=== PATIENT | male | born 1985 | race Caucasian/White ===

== ENCOUNTER 2021-07-21 01:26 | Emergency (ER) | payer BC, SELFPAY ==
[2021-07-21 01:30] VITALS: BP 151/105; PULSE 101; RESP 16; TEMP 36.6; O2SAT 98; BMI 34.8
--- NOTE | 2021-07-21 01:40 | EDS_ITS ---
HPI History of Present Illness Chief Complaint: General Illness Informant: patient and spouse/S.O. Narrative Narrative: Patient presents with nausea vomiting and diarrhea that started about 24 hours ago. Evidently 3 people on his shift at work are ill with something similar. 8 people on another shifter ill. This patient has had his COVID vaccines but not yet booster. He also had COVID last year with almost no symptoms. He has minimal sore throat but no cough or myalgias or fevers. No travel. No abnormal foods. No recent antibiotics. Patient has had a total of 2-3 episodes of vomiting in the last 24 hours. He has had about 3 soft but not watery bowel movements. No blood has been seen in any of this. No abdominal pain. No fevers. No history of abdominal surgeries. No change in medicines for his bipolar. [facility] Medical History Anxiety Bipolar disorder Depression Home Medications lamotrigine [Lamictal] mg PO 07/21/21 [History Last Taken Unknown] ondansetron 4 mg PO Q8H PRN #10 tab 07/21/21 [Rx Last Taken Unknown] Allergy/AdvReac Type Severity Reaction Status Date / Time Bifidobacterium infantis Allergy Rash Verified 07/21/21 01:28 [From Align] Surgical History no surgical history Social History Smoking Status: Current every day smoker tobacco type: e-cigarettes ROS ROS ED Constitutional Constitutional ED: Denies chills, fever(s) or subjective Eyes Eyes: Denies blurry vision ENT ENT ED: Reports sore throat; Denies rhinorrhea Cardiovascular Cardiovascular: Denies chest pain Respiratory/Chest Respiratory/Chest: Denies cough, dyspnea, dyspnea on exertion or sputum Gastrointestinal Gastrointestinal: Reports diarrhea, nausea and vomiting; Denies abdominal pain, constipation or melena Genitourinary Genitourinary ED: Denies dysuria or hematuria Musculoskeletal Musculoskeletal: Denies myalgias Integumentary Denies rash Neurologic Neurologic: Denies headache(s) Psychiatric Psychiatric: Reports anxiety and depression Endocrine Endocrinology: Denies polydipsia or polyuria Allergic/Immunologic Allergic/Immunologic ED: Denies mouth swelling or urticaria EXAM Physical Exam Const Vital Signs: 07/21/21 01:30 07/21/21 01:33 Temperature 97.9 F Temperature Source Temporal Pulse Rate 101 H Respiratory Rate 16 Respiratory Effort Normal Blood Pressure 151/105 H Blood Pressure Mean 120 Pulse Ox 98 Oxygen Delivery Method Room Air Positive well nourished and well developed Constitutional Narrative: Patient is lying in bed. He looks comfortable and nontoxic. General Appearance ED: well developed and NAD; Negative for cyanotic or diaphoretic HEENT Reports moist mucous membranes Eyes General Eye ED: Negative for pale conjunctiva or scleral icterus Neck no JVD Resp normal respiratory effort and clear to auscultation bilaterally Auscultation: Negative for rales, rhonchi or wheezes Cardio regular rate and regular rhythm GI normal to inspection, nondistended, normoactive bowel sounds, non-tender, non- distended and no masses Palpation: soft; Negative for tender or guarding Back/Spine no CVA tenderness Extremity normal to inspection Neuro Sensorium / Orientation: alert; Negative for lethargic or stuporous Psych mental status grossly normal Skin no rashes or lesions noted MDM MDM MDM Narrative Medical decision making narrative: Patient's COVID test is positive. His nausea is better. He is not having dyspnea or cough. He does have a slight sore throat. This patient has been vaccinated with 2 vaccines. He was due for his booster in the next 1 to 2 months. He has actually had COVID 2 other times before also. He has done well each time. Plan will be to get him home. He should notify work and any close contacts of the illness. We discussed reasons to return. Lab Data Attestation: I reviewed the patient's lab results. Discharge Plan Triage Chief Complaint: General Illness ED Provider: Inocente Dunne Dx/Rx/DC Orders Clinical Impression: COVID-19, Nausea vomiting and diarrhea Instructions: Coronavirus Disease 2019 (COVID-19): Caring for Yourself or Others Prescriptions: New ondansetron 4 mg tablet,disintegrating 4 mg PO Q8H PRN (Reason: nausea and vomiting) Qty: 10 RF: 0 No Action lamotrigine [Lamictal] 150 mg Tablet PO RF: 0 Stand Alone Forms: ED Work / School Excuse Primary Care Provider: Care Physician,No Primary Referrals: Marychuy Palacios MD [STAFF PHYSICIAN] - 10-14 Days if not better Care Physician,No Primary [Primary Care Provider] - Disposition Disposition: Home, Self Care
[2021-07-21] MEDS: Ondansetron ODT 4 MG Tablet PO (01:43)
== END 2021-07-21 02:36 | disposition home or self-care (01) ==
PROVIDERS: Emergency Provider Emergency Medicine; Visit Provider Emergency Medicine
DX: U07.1 COVID-19 (principal); F31.9 Bipolar disorder, unspecified; F17.290 Nicotine dependence, other tobacco product, uncomplicated; F41.9 Anxiety disorder, unspecified; Z79.899 Other long term (current) drug therapy
CPT/HCPCS: 87426; 99283

== ENCOUNTER 2021-09-25 08:01 | Emergency (ER) | payer BC, SELFPAY ==
[2021-09-25 08:04] VITALS: BP 169/112; PULSE 84; RESP 17; TEMP 36.3; O2SAT 100; BMI 34.3
--- NOTE | 2021-09-25 08:20 | EDS_ITS ---
HPI HPI - GI History of Present Illness Chief Complaint: Abd Pain Narrative Narrative: 36-year-old male presenting with right flank pain. He states its been present for 5 days. He describes it as coming out of nowhere and sharp in nature. It does not radiate. He does not have associated diaphoresis or nausea with it. He states that when he bears down to have a bowel movement or when he coughs it hurts worse. He denies any trauma. He denies constipation or diarrhea. He states that the pain does not change with his diet. No history of kidney stones. No urinary complaints. He is not having chest pain or shortness of breath. [facility] Medical History Anxiety Bipolar disorder Depression Home Medications lamotrigine [Lamictal] 150 mg PO DAILY 07/21/21 [History Last Taken Unknown] naproxen [Naprosyn] 500 mg PO BID PRN #20 tab 09/25/21 [Rx Last Taken Unknown] ondansetron 4 mg PO Q8H PRN #14 tab 09/25/21 [Rx Last Taken Unknown] Allergy/AdvReac Type Severity Reaction Status Date / Time Bifidobacterium infantis Allergy Rash Verified 09/25/21 08:03 [From Align] Social History Smoking Status: Current every day smoker tobacco type: e-cigarettes ROS ROS ED Constitutional Constitutional ED: Denies chills, fever(s) or sweats ENT ENT ED: Denies rhinorrhea or sore throat Cardiovascular Cardiovascular: Denies chest pain or palpitations Respiratory/Chest Respiratory/Chest: Denies cough, dyspnea or dyspnea on exertion Gastrointestinal Gastrointestinal: Reports abdominal pain; Denies diarrhea, nausea or vomiting Genitourinary Genitourinary ED: Denies dysuria or hematuria Musculoskeletal Musculoskeletal: Reports back pain Integumentary Denies Abrasions or rash Neurologic Neurologic: Denies headache(s) or paresthesias Psychiatric Psychiatric: Denies anxiety or depression EXAM Physical Exam Const Vital Signs: 09/25/21 08:04 Temperature 97.3 F L Temperature Source Temporal Pulse Rate 84 Respiratory Rate 17 Blood Pressure 169/112 H Blood Pressure Mean 131 Pulse Ox 100 Oxygen Delivery Method Room Air Positive well nourished General Appearance ED: NAD; Negative for pallor HEENT Reports moist mucous membranes normocephalic and atraumatic Eyes PERRL and EOMs intact bilaterally General Eye ED: Negative for pale conjunctiva or scleral icterus Resp normal respiratory effort and clear to auscultation bilaterally Cardio regular rate and regular rhythm GI non-distended GI Narrative: Negative Stephen sign. Palpation: soft and tender RUQ Back/Spine General Back: CVA tenderness right Neuro CN's II-XII intact bilaterally and moves all extremities Sensorium / Orientation: alert, oriented to person, oriented to place and oriented to time Psych mental status grossly normal Skin General Skin Exam: Negative for jaundice or pallor Rashes: no rashes MDM MDM MDM Narrative Medical decision making narrative: Patient's pain treated with Toradol. He was given a liter of IV fluids as well. CBC and CMP are unremarkable. Urinalysis negative for infection or occult blood. Patient still continued to have pain so I obtained a CT of the abdomen pelvis with IV contrast which shows some very mild hydronephrosis and hydroureter on the right side. Suspected that he passed a kidney stone. It also shows mesenteric adenitis. Patient was counseled on findings and will be discharged home with Bijan and Crystal. He was given follow-up with Dr. Calderon. Patient stable for discharge at this time. Impression: 1. Mesenteric adenitis 2. Right hydronephrosis with hydroureter Lab Data Attestation: I reviewed the patient's lab results. Labs: Laboratory Results - last 24 hr 09/25/21 09/25/21 09/25/21 08:25 08:25 09:15 WBC 7.8 RBC 4.89 Hgb 15.2 Hct 43.9 MCV 89.8 MCH 31.1 MCHC 34.6 RDW Std Deviation 39.8 RDW Coeff of Chantelle 12.1 Plt Count 244 MPV 10.7 Immature Gran % (Auto) 0.100 Neut % (Auto) 65.1 Lymph % (Auto) 23.7 [place] % (Auto) 8.8 Eos % (Auto) 1.7 Baso % (Auto) 0.6 Absolute Neuts (auto) 5.1 Absolute Lymphs (auto) 1.85 Nucleated RBC % 0 Sodium 138 Potassium 3.7 Chloride 107 Carbon Dioxide 25.0 Anion Gap 6 BUN 15 Creatinine 1.06 Estim Creat Clear Calc 104.58 Est GFR (MDRD) Af Amer 103 Est GFR (MDRD) Non-Af 85 BUN/Creatinine Ratio 14.2 Glucose 89 Calcium 8.4 L Total Bilirubin 0.40 AST 18 ALT 39 Alkaline Phosphatase 75 Total Protein 7.6 Albumin 4.2 Globulin 3.4 Albumin/Globulin Ratio 1.2 Urine Color Yellow Urine Clarity Clear Urine pH 7.0 Ur Specific [place] 1.015 Urine Protein Negative Urine Glucose (UA) Normal Urine Ketones Negative Urine Occult Blood Negative Urine Nitrite Negative Urine Bilirubin Negative Urine Urobilinogen Normal Ur Leukocyte Esterase 25 H Urine RBC 0 SEEN Urine WBC 0-5 SEEN Ur Squamous Epith Cells 0-5 SEEN Urine Bacteria 0 SEEN Urine Mucus 0 SEEN Radiography Diagnostic Testing: Clinical Impression(s) from Imaging Studies Abdomen/Pelvis CT 09/25/21 09:33 IMPRESSION: Mild degree of right hydronephrosis and right hydroureter down to the right ureterovesical junction. A recently passed calculus should BE ruled out. Mild degree of diffuse bilateral wall thickening. Findings suggestive of mesenteric adenitis. Electronically Signed: Sameer Lloyd MD at 10:34 EDT , Discharge Plan Triage Chief Complaint: Abd Pain ED Provider: Mihir Mcgrath Dx/Rx/DC Orders Instructions: Understanding Hydronephrosis, ED Kidney Stone, Passed, ED Adenitis, Mesenteric Prescriptions: New naproxen [Naprosyn] 500 mg tablet 500 mg PO BID PRN (Reason: pain) Qty: 20 RF: 0 ondansetron 4 mg tablet,disintegrating 4 mg PO Q8H PRN (Reason: nausea and vomiting) Qty: 14 RF: 0 No Action lamotrigine [Lamictal] 150 mg Tablet 150 mg PO DAILY RF: 0 Referrals: [facility] [Other] Javed Calderon MD [STAFF PHYSICIAN] - As Needed Disposition Disposition: Home, Self Care
[2021-09-25] MEDS: 0.9% Normal Saline 1,000 ML 1000 ML IV (08:32)
[2021-09-25] MEDS: Ketorolac 15 MG/ML Vial IV (08:33)
[2021-09-25 08:38] LABS: Absolute Lymphocyte Count 1.85 X10^3/uL (0.83-4.51); Absolute Neutrophil Count 5.1 X10^3/uL (2.0-7.7); Basophil# 0.05 X10^3/uL; Basophil% 0.6 % (0-1); Eosinophil# 0.13 X10^3/uL; Eosinophils% 1.7 % (0-5); Hematocrit 43.9 % (40-54); Hemoglobin 15.2 g/dL (13.0-16.5); Lymphocyte # 1.85 X10^3/ul (0.83-4.51); Lymphocyte % 23.7 % (19-41); Mean Corp Hgb Conc 34.6 g/dL (32-36); Mean Corpuscular Hgb 31.1 pg (27.0-32.0); Mean Corpuscular Volume 89.8 fL (80-94); Mean Platelet Vol. 10.7 fl (6.2-12.0); Monocyte# 0.69 X10^3/uL; Monocyte% 8.8 % (0-10); NRBC Flagged by Analyzer 0 % (0-5); Neutrophil # 5.07 X10^3/uL (2.7-7.7); Neutrophil % 65.1 % (47-70); Platelet Count 244 K/mm3 (150-450); RBC Distribution Width CV 12.1 % (11.6-14.6); RBC Distribution Width SD 39.8 fl (35.1-43.9); Red Blood Count 4.89 M/mm3 (4.6-6.2); White Blood Count 7.8 K/mm3 (4.4-11.0)
[2021-09-25 08:55] LABS: ALB/GLOB Ratio 1.2 RATIO (0.9-2.4); AST(SGOT) 18 U/L (15-37); Alanine Aminotransfer ALT/SGPT 39 U/L (16-61); Albumin, Serum 4.2 g/dL (3.2-5.0); Alkaline Phosphatase 75 U/L (45-117); Anion Gap 6 (5-15); BUN 15 mg/dL (7-18); BUN/Creat Ratio 14.2 RATIO (10-20); Calcium,Total 8.4 mg/dL (8.5-10.1); Chloride 107 mmol/L (98-107); Creatinine, Serum 1.06 mg/dL (0.70-1.30); EST Glomerular Filtration Rate 85 mL/min (>60); Est Glom Filt Rate - Afr Amer 103 mL/min (>60); Estimated Creatinine Clearance 104.58 ml/min; Globulin 3.4 g/dL (2.2-4.2); Glucose 89 mg/dL (74-106); Potassium 3.7 mmol/L (3.5-5.1); Protein, Total 7.6 g/dL (6.4-8.2); Sodium Level 138 mmol/L (136-145)
[2021-09-25 09:30] LABS: Bacteria 0 SEEN /hpf (None Seen); Color, Urine Yellow (Yellow); Glucose, Dipstick Normal (Normal); Ketone-Dipstick Negative (Negative); Leukocyte Esterase-Dipstick 25 /ul (Negative); Mucous, Urine 0 SEEN /hpf (<or=2+); Nitrite-Dipstick Negative (Negative); Occult Blood-Urine Negative /ul (Negative); Protein-Dipstick Negative (Negative); Red Blood Cells-Urine 0 SEEN /hpf (0-5); Specific Gravity, Urine 1.015 (1.002-1.030); Urine Bilirubin Dipstick Negative (Negative); Urine Clarity Clear (Clear); Urine Urobilinogen Normal (Normal)
--- NOTE | 2021-09-25 09:33 | CT_ITS ---
STUDY: CT ABDOMEN AND PELVIS WITH CONTRAST REASON FOR EXAM: Male, 36 years old. 5 day history of right-sided abdominal pain. RADIATION DOSAGE (If Supplied By Facility): CTDIvol = ( 16.79 ) mGy, DLP = ( 1347.44 ) mGycm TECHNIQUE: Transaxial images were obtained from the dome of the diaphragm to the symphysis pubis without oral contrast. IV 100mL [id number]-[id number] was administered. Sagittal and coronal images were reconstructed. Individualized dose optimization techniques were used for this CT. COMPARISON: None. FINDINGS: The visualized lung bases are unremarkable. The visualized portions of the heart are within normal limits. There is decreased attenuation of the liver consistent with steatosis. Normal gallbladder and extrahepatic biliary system. Normal spleen. Normal pancreas. Normal bilateral adrenal glands. Mild degree of right hydronephrosis. Mildly dilated right ureter down to the ureterovesical junction. Findings are suggestive of a recently passed right ureteral calculus. Normal left kidney. There is a small hiatal hernia. Normal small intestine. Normal colon. The appendix is visualized and appears normal. Small lymph nodes are seen within the mesentery in the right lower quadrant suggestive of mesenteric adenitis. Normal abdominal aorta. Normal inferior vena cava. Normal retroperitoneum. Mild degree of bladder wall thickening. Focal prostatic calcification. Normal abdominal wall. Normal osseous structures. CT/Abdomen/Pelvis W IV Cont ONLY IMPRESSION: Mild degree of right hydronephrosis and right hydroureter down to the right ureterovesical junction. A recently passed calculus should BE ruled out. Mild degree of diffuse bilateral wall thickening. Findings suggestive of mesenteric adenitis. Electronically Signed: Sameer Lloyd MD at 10:34 EDT ,
[2021-09-25 09:41] LABS: Squamous Epithelial Cells - UA 0-5 SEEN /hpf (0-5)
[2021-09-25 09:42] LABS: White Blood Cells 0-5 SEEN /hpf (0-5)
[2021-09-25 11:36] VITALS: BP 162/92; PULSE 81; RESP 18; O2SAT 98
== END 2021-09-25 11:36 | disposition home or self-care (01) ==
PROVIDERS: Emergency Provider Student in an Organized Health Care Education/Training Program; Visit Provider Student in an Organized Health Care Education/Training Program
DX: I88.0 Nonspecific mesenteric lymphadenitis (principal); N13.30 Unspecified hydronephrosis; N13.4 Hydroureter; F17.290 Nicotine dependence, other tobacco product, uncomplicated; Z79.899 Other long term (current) drug therapy
CPT/HCPCS: 74177; 80053; 81001; 85025; 96374; 96375; 99283; J7030; Q9967; A4216